=== PATIENT | female | born 1970 | race Hispanic/Latino ===

== ENCOUNTER 2022-11-12 19:08 | Emergency (ER) | payer OTHER ==
[~2022-11-12] VITALS: Ht 162.6 cm; Wt 80.7 kg
[2022-11-12] MEDS ORDERED: IBUPROFEN 400 MG TAB PO ONE (19:45)
[2022-11-12] MEDS ORDERED: ACETAMINOPHEN 325 MG TAB PO ONE (19:45)
[2022-11-12] MEDS ORDERED: IBUPROFEN800 MG PO (21:27)
[2022-11-12] MEDS ORDERED: MUCINEX DM ER1 EAC1 PO (21:27)
[2022-11-12] MEDS ORDERED: FLONASE ALLERG9.9 ML INH (21:27)
[2022-11-12] MEDS ORDERED: METFORMIN HCL500 MG PO (21:30)
== END 2022-11-12 21:32 | disposition home or self-care (01) ==
LOC: ER 19:15
DX: R50.9 Fever, unspecified (principal); U07.1 COVID-19; R05.9 Cough, unspecified; E11.9 Type 2 diabetes mellitus without complications
CPT/HCPCS: 71046; 83518; 87070; 99283; U0002